=== PATIENT | female | born 1955 | race Caucasian/White ===

== ENCOUNTER → 2022-12-31 | Outpatient (CLI) | payer MEDICARE, OTHER | END | disposition home or self-care (01) | LOC: ORTHO 01:10 | PROVIDERS: ATTEND Orthopaedic Surgery | DX: M17.12 Unilateral primary osteoarthritis, left knee (principal) ==

== ENCOUNTER → 2023-09-19 | Outpatient (CLI) | payer MEDICARE, OTHER ==
[~2023-09-19] MED LIST: IOHEXOL 300 MG/ML 100 ML VIAL IV ONE; IOHEXOL 300 MG/ML 100 ML VIAL ONE
== END ==
LOC: CT 00:15
PROVIDERS: ATTEND Internal Medicine Hematology & Oncology
DX: C34.11 Malignant neoplasm of upper lobe, right bronchus or lung (principal); I25.10 Atherosclerotic heart disease of native coronary artery without angina pectoris; K31.9 Disease of stomach and duodenum, unspecified; K76.0 Fatty (change of) liver, not elsewhere classified; Z90.2 Acquired absence of lung [part of]